=== PATIENT | male | born 1940 | race Caucasian/White ===

== ENCOUNTER 2019-03-01 12:25 | Emergency (ER) | payer OTHER ==
[~2019-03-01] VITALS: Ht 180.3 cm; Wt 81.6 kg
[2019-03-01] MEDS ORDERED: COUMADIN2.5 MG (13:34)
[2019-03-01] MEDS ORDERED: IVERSARTAN (13:34)
== END 2019-03-01 17:10 | disposition home or self-care (01) ==
LOC: ER 12:25
DX: R42 Dizziness and giddiness (principal)